=== PATIENT | female | born 1980 | race American Indian/Alaskan Native ===

== ENCOUNTER 2017-11-29 11:03 | Inpatient (IN) | payer MEDICAID ==
[2017-11-29 11:07] VITALS: BMI 43.5
[2017-11-29] MEDS ORDERED: DiphenhydrAMINE 50 mg/ml Inj IVP STA (11:39)
--- NOTE | 2017-11-29 11:49 | ED PDOC ---
HPI: Skin/Bite Injury Time Seen by Provider: 11/29/17 11:15 Chief Complaint (Nursing): Abnormal Skin Integrity Chief Complaint (Provider): Angioedema History Per: Patient Additional Complaint(s): 37 yo female, PMH of HTN, presents to ED for evaluation of severe swelling to lips nad right side of her face since ~ 7 am. Pt can not identify any triggering factors, no few foods, lotions, detergents or medications. pt unsure of her HTN medication; however, director underwriter sales contacted [facility] and found that pt is on Amlodipine. Pt reports she last took her HTN medication last week sometime. No SOB or chest pain/palpitations at anytime. No rash. Pt took 1 tab Benadryl, 25 mg PO, at home BSA/AML COMPLIANCE OFFICER ~ 10 am. Past Medical History Reviewed: Nursing Documentation, Vital Signs Vital Signs: Last Vital Signs Temp 99 F 11/29/17 11:06 Pulse 70 11/29/17 13:10 Resp 21 11/29/17 13:10 BP 130/80 11/29/17 13:10 Pulse Ox 98 11/29/17 13:10 - Medical History PMH: Asthma, Hiatal Hernia, HTN - Surgical History Surgical History: (x4) - Family History Family History: States: Unknown Family Hx - Living Arrangements Living Arrangements: With Family - Social History Current smoker - smoking cessation education provided: No Alcohol: None Drugs: Denies - Home Medications Home Medications: Ambulatory Orders Medication Instructions Recorded Famotidine [Pepcid] 1 tab PO DAILY 11/29/17 Ibuprofen [Motrin Tab] 1 tab PO DAILY 11/29/17 - Allergies Allergies/Adverse Reactions: Allergies Allergy/AdvReac Type Severity Reaction Status Date / Time No Known Allergies Allergy Verified 11/29/17 11:23 Review of Systems ROS Statement: Except As Marked, All Systems Reviewed And Found Negative Skin: Positive for: Other (edema) Physical Exam - Reviewed Nursing Documentation Reviewed: Yes Vital Signs Reviewed: Yes - Physical Exam Appears: Positive for: Well, Non-toxic, No Acute Distress Head Exam: Positive for: ATRAUMATIC, NORMAL INSPECTION, NORMOCEPHALIC Skin: Positive for: Normal Color, Warm, DRY Eye Exam: Positive for: EOMI, Normal appearance, PERRL ENT: Positive for: Other (upper and lower lips, (+) severe edema to right 1/3, ( +) edema to right cheek and extending to chin, no erythema no tendernss to palpation) Neck: Positive for: Normal, Painless ROM Cardiovascular/Chest: Positive for: Regular Rate, Rhythm Respiratory: Positive for: CNT, Normal Breath Sounds Gastrointestinal/Abdominal: Positive for: Normal Exam, Soft Back: Positive for: Normal Inspection Extremity: Positive for: Normal ROM Neurologic/Psych: Positive for: Alert, Oriented - Laboratory Results Result Diagrams: 11/29/17 13:10 11/29/17 13:10 - ECG O2 Sat by Pulse Oximetry: 100 Medical Decision Making Medical Decision Making: Diagnostics ordered. POX: 100% on RA. Pt on monitoring and evaluation advisor. IV access established and treatment initiated with Solumedrol 125mg, Benadryl 25 mg and Pepcid 20 mg On re-eval, vitals remain stable. No improvement noted to facial edema thus far. IM epinephrine administered. ED MD, Dr. Murillo, present at bedside for evaluation as well. Case discussed with wader boot top assembler, Dr. Sanders, who presented to see and evaluate Pt at bedside. Agreed with admission at this time; however, Pt stable and no airway compromise noted thus far. Pt able to be admitted to telemetry for close monitoring. Pt educated on plan and demonstrated full understanding. Pt agreeable to hospital admission. Offers no complaint son re-eval, no chest pain, SOB. POX: 100% on RA. Pt able to tolerate PO without difficulty. Dr. Tamayo, medicine on-call, contacted and case discussed. Arrangements made for tele Disposition - Clinical Impression Clinical Impression: Angioedema - Patient ED Disposition Is Patient to be Admitted: Yes - Disposition Disposition Time: 15:10 Condition: STABLE Forms: [facility] (Maori)
[2017-11-29] MEDS ORDERED: DiphenhydrAMINE 50 mg/ml Inj ONE (11:52)
[2017-11-29] MEDS ORDERED: EPINEPHrine 1 mg/ml (1:1000) Inj IM ONE (12:07)
[2017-11-29 13:33] LABS: ALB/GLOB RATIO 1.3 (1.0-2.1); ALBUMIN 4.3 g/dL (3.5-5.0); ALT/SGPT 46 U/L (9-52); AST/SGOT 43 U/L (14-36); BLOOD UREA NITROGEN 9 mg/dl (7-17); CALCIUM 9.2 mg/dL (8.4-10.2); GFR AFRICAN-AMERICAN > 60; GFR NON-AFRICAN AMERICAN > 60
[2017-11-29 13:40] LABS: BASO # 0.1 K/uL (0.0-0.2); BASO % 0.6 % (0.0-2.0); EOS # 0.1 K/uL (0.0-0.7); EOS % 1.3 % (0.0-4.0); HEMOGLOBIN 10.3 g/dL (12.0-16.0); LYMPH # 2.2 K/uL (1.0-4.3); LYMPH % 26.9 % (20.0-40.0); MEAN CELL VOLUME 81.2 fl (81.0-99.0); MEAN CORPUSCULAR HEMOGLOBIN 26.4 pg (27.0-31.0); MEAN CORPUSCULAR HGB CONC 32.5 g/dL (33.0-37.0); MEAN PLATELET VOLUME 9.9 fl (7.2-11.7); MONO # 0.5 K/uL (0.0-0.8); MONO % 5.9 % (0.0-10.0); NEUT # 5.3 K/uL (1.8-7.0); NEUT % 65.3 % (50.0-75.0); RBC 3.91 Mil/uL (3.80-5.20); RED CELL DISTRIBUTION WIDTH 15.5 % (11.5-14.5); WHITE BLOOD COUNT 8.1 K/uL (4.8-10.8)
[2017-11-29] MEDS ORDERED: Potassium Chloride 20 mEq ER Tab PO ONE ×2 (14:42→14:44)
[2017-11-29] MEDS ORDERED: MethylPREDNISolone 40 mg Vial IVP SCH (16:00)
[2017-11-29] MEDS ORDERED: methylPREDNISolone 40 MG in Sodium Chloride 0.9% 50 ML IVPB SCH (16:00)
[2017-11-30] MEDS: MethylPREDNISolone 40 mg Vial IVP SCH ×3 (01:19→16:23)
[2017-11-30] MEDS: DiphenhydrAMINE 50 mg/ml Inj IVP PRN ×4 (01:27→22:43)
[2017-11-30] MEDS: Enoxaparin 40 mg Syringe SC SCH (09:19)
[2017-11-30 11:51] LABS: HEMOGLOBIN 10.4 g/dL (12.0-16.0); MEAN CORPUSCULAR HEMOGLOBIN 26.4 pg (27.0-31.0); MEAN CORPUSCULAR HGB CONC 32.2 g/dL (33.0-37.0); RBC 3.93 Mil/uL (3.80-5.20); RED CELL DISTRIBUTION WIDTH 15.7 % (11.5-14.5)
[2017-11-30 12:07] LABS: BLOOD UREA NITROGEN 9 mg/dl (7-17); CALCIUM 9.5 mg/dL (8.4-10.2); GFR AFRICAN-AMERICAN > 60; GFR NON-AFRICAN AMERICAN > 60
[2017-11-30 13:15] LABS: % IRON SATURATION 4.7 % (20-55)
[2017-11-30 14:17] LABS: FERRITIN 6.3 ng/Ml (6.24-137.0)
--- NOTE | 2017-11-30 17:48 | CARD ---
APPROVED REPORT Date of service: 11/29/2017 EKG Measurement Heart [id number] <Conclusion> Normal sinus rhythm Normal ECG
[2017-12-01] MEDS: MethylPREDNISolone 40 mg Vial IVP SCH ×3 (00:12→16:44)
[2017-12-01 06:12] LABS: HEMOGLOBIN 9.7 g/dL (12.0-16.0); MEAN CELL VOLUME 81.6 fl (81.0-99.0); MEAN CORPUSCULAR HGB CONC 31.9 g/dL (33.0-37.0); RBC 3.72 Mil/uL (3.80-5.20); RED CELL DISTRIBUTION WIDTH 15.5 % (11.5-14.5); WHITE BLOOD COUNT 20.7 K/uL (4.8-10.8)
[2017-12-01 06:24] LABS: ALB/GLOB RATIO 1.2 (1.0-2.1); ALT/SGPT 30 U/L (9-52); AST/SGOT 28 U/L (14-36); BLOOD UREA NITROGEN 13 mg/dl (7-17); CALCIUM 9.3 mg/dL (8.4-10.2); GFR AFRICAN-AMERICAN > 60; GFR NON-AFRICAN AMERICAN > 60
--- NOTE | 2017-12-01 07:09 | HP ---
CHIEF COMPLAINT: Swelling of face. HISTORY OF PRESENT ILLNESS: This is a 37-year-old female, known case of hypertension, asthma, and obesity who was having severe swelling of her lips and right side of face more than the left since 7 o'clock yesterday, so the patient was brought into the emergency room and was admitted for further management. The patient denies any new or unusual food, and the patient has picture showing worse angioedema than currently the patient has. PAST MEDICAL HISTORY: Significant for hypertension, asthma, and hiatal hernia. PAST SURGICAL HISTORY: Remarkable for section. PERSONAL HISTORY: The patient is currently nonsmoker, nondrinker, no substance abuse. MEDICATIONS: The patient says she is taking amlodipine, famotidine, and ibuprofen. ALLERGIES: THE PATIENT IS NOT ALLERGIC TO ANY MEDICATIONS patient says she is taking capsule for amlodipine and most likely amlodipine is not available in capsule form alone, but it is available in capsule form in combination with FERN inhibitors. So, most likely the patient was taking some FERN inhibitor. The patient will bring the bottles from house, and we will check. FAMILY HISTORY: Noncontributory. REVIEW OF SYSTEMS: Positive for swelling of lips and face. Review of systems otherwise is negative for headache, dizziness, syncope, loss of consciousness, chest pain, shortness of breath, nausea, vomiting, diarrhea, constipation, or any new joint or extremity pain. Review of systems of all other organ system is unremarkable. PHYSICAL EXAMINATION: GENERAL: Well-built, well-nourished, overweight female, in no acute distress. VITAL SIGNS: Temperature 98.1, pulse 73, respirations 20, blood pressure 130/81. HEENT: Pupils reacting to light. No JVD. No thyromegaly. No lymphadenopathy. No nystagmus. The patient has severe angioedema of lips, tongue, and the face, but no respiratory compromise or speech difficulty or swallowing problem. HEART: S1 and S2, normal and regular. LUNGS: Good bilateral air exchange. ABDOMEN: Soft and nontender. No organomegaly. No fluid. Bowel sounds are present and normal. EXTREMITIES: No edema. No calf swelling or tenderness. No acute ischemia. CHARACTER ACTRESS: Essentially unchanged. There is no sign of any acute gross focal, motor, or sensory neurological deficit. DIAGNOSTIC DATA: Available diagnostic data reviewed. WBC 8.1, hemoglobin 10.3, hematocrit 31.8, platelets 292. Sodium 140, potassium 3.3, chloride 104, bicarb 22, BUN 9, creatinine 0.6. SMA-12 is unremarkable except for AST of 43, which is most likely from hepatic steatosis. EKG does not reveal any acute ST-T changes. Telemetry monitoring does not reveal significant arrhythmia. ADMITTING IMPRESSION: Angioedema, most likely from FERN inhibitor, hypertension, arthritis, morbid obesity with BMI of 43. PLAN: As ordered. Case and plan discussed with the patient. Adelso Tamayo MD
[2017-12-01] MEDS: DiphenhydrAMINE 50 mg/ml Inj IVP PRN ×3 (09:14→23:01)
[2017-12-01] MEDS: Enoxaparin 40 mg Syringe SC SCH (09:14)
[2017-12-01 12:54] LABS: FOLATE > 20.0 ng/mL
--- NOTE | 2017-12-01 13:36 | PN ---
DATE: 12/01/2017 SUBJECTIVE: The patient seen and examined. Interim events noted. The patient swollen inside the throat and tongue, and face, but much better than yesterday. No problem with breathing or speaking. No new complaint of chest pain or shortness of breath. PHYSICAL EXAMINATION: GENERA: The patient is in no acute distress. HEENT: Reveals the patient still has weak tongue and facial swelling, but it is much better than yesterday. HEART: Regular. LUNGS: Good bilateral air exchange. ABDOMEN: Soft and nontender. EXTREMITIES: No edema. No calf swelling. No tenderness. No acute ischemia. LAY UP OPERATOR: Exam is essentially unchanged. DIAGNOSTIC DATA: Available diagnostic data reviewed. WBC is 18, most likely . No sign of acute infection. ASSESSMENT AND PLAN: Overall, the patient is clinically stable and improving. Telemetry monitoring does not reveal significant arrhythmias. Plan as ordered. Adelso Tamayo MD
[2017-12-02] MEDS: MethylPREDNISolone 40 mg Vial IVP SCH ×2 (01:25→08:58)
[2017-12-02 05:16] LABS: HEMOGLOBIN 9.5 g/dL (12.0-16.0); MEAN CELL VOLUME 82.1 fl (81.0-99.0); MEAN CORPUSCULAR HEMOGLOBIN 25.7 pg (27.0-31.0); MEAN CORPUSCULAR HGB CONC 31.3 g/dL (33.0-37.0); RBC 3.71 Mil/uL (3.80-5.20); RED CELL DISTRIBUTION WIDTH 15.8 % (11.5-14.5); WHITE BLOOD COUNT 19.9 K/uL (4.8-10.8)
[2017-12-02] MEDS: DiphenhydrAMINE 50 mg/ml Inj IVP PRN ×2 (06:24→14:04)
[2017-12-02 06:50] LABS: ALB/GLOB RATIO 1.1 (1.0-2.1); ALBUMIN 3.7 g/dL (3.5-5.0); ALT/SGPT 29 U/L (9-52); AST/SGOT 25 U/L (14-36); BLOOD UREA NITROGEN 13 mg/dl (7-17); CALCIUM 8.7 mg/dL (8.4-10.2); GFR AFRICAN-AMERICAN > 60; GFR NON-AFRICAN AMERICAN > 60
[2017-12-02] MEDS: Enoxaparin 40 mg Syringe SC SCH (08:58)
--- NOTE | 2017-12-02 14:33 | PN ---
DATE: 12/02/2017 SUBJECTIVE: The patient seen and examined. Interim events noted. The patient remains in progressive care unit. Feels better. Swelling improved. No problem with speech or breathing. PHYSICAL EXAMINATION: GENERAL: The patient is in no acute distress. VITAL SIGNS: Stable. HEENT: is significantly improved but still present and not resolved. HEART: S1 and S2. Normal and regular. LUNGS: Good bilateral air exchange. ABDOMEN: Soft and nontender. EXTREMITIES: No edema. No calf swelling. No tenderness. No acute ischemia. HOUSING SPECIALIST: Exam is essentially unchanged. DIAGNOSTIC DATA: Available diagnostic data reviewed. Telemetry monitoring does not reveal significant arrhythmias. ASSESSMENT AND PLAN: Overall, the patient's general medical condition is stable and improving. The patient's home medication and bottles reviewed. The patient was not on any FERN inhibitor. Plan as ordered. Adelso Tamayo MD
[2017-12-02 15:56] VITALS: BP 137/89; PULSE 82; RESP 20; TEMP 98.4; O2SAT 97
--- NOTE | 2017-12-04 07:16 | PQF ---
PROVIDER RESPONSE TEXT: Anemia REVIEWER QUERY TEXT: Clarification of Clinical Diagnostic Findings Please clarify documentation or clinical relevance for the clinical / diagnostic findings or whether those are insignificant or unable to be further specified. The patient's Clinical Indicators include: Patient presents with severe swelling of her lips and right side of face more than the left since 7 o'clock yesterday, so the patient was brought into the emergency room and was admitted for further management. Diagnosis of Angioedema noted. HGB 10.3-> 9.5 HCT 31.8-> 30.4 MCV , TIBC, Ferritin and Folate: WNL MCH and MCHC , Iron, Sat Iron: Low Query created by: Ghislaine Garza on 12/02/2017 10:50 AM Electronically signed by: Adelso Tamayo 12/04/2017 7:12 AM
== END 2017-12-02 16:39 | disposition home or self-care (01) | DRG 447 ==
LOC: H.ER 11:03 → H.ERHOLD 14:49 → H.TEL 17:45
PROVIDERS: ADMIT Internal Medicine; ATTEND Internal Medicine
DX: T78.3XXA Angioneurotic edema, initial encounter (principal); E66.01 Morbid (severe) obesity due to excess calories; Z68.41 Body mass index [BMI] 40.0-44.9, adult; I10 Essential (primary) hypertension; J45.909 Unspecified asthma, uncomplicated; M19.90 Unspecified osteoarthritis, unspecified site; K44.9 Diaphragmatic hernia without obstruction or gangrene; D64.9 Anemia, unspecified

== ENCOUNTER 2018-01-25 08:33 | Emergency (ER) | payer MEDICAID ==
[2018-01-25 08:33] VITALS: BMI 43.5
[2018-01-25] MEDS ORDERED: Sodium Chloride 0.9% 1,000 ML IV STA (08:44)
[2018-01-25 08:49] VITALS: TEMP 98.2
--- NOTE | 2018-01-25 08:57 | ED PDOC ---
HPI: General Adult Time Seen by Provider: 01/25/18 08:37 Chief Complaint (Nursing): Allergic Reaction Chief Complaint (Provider): Left Facial Swelling History Per: Patient History/Exam Limitations: no limitations Onset/Duration Of Symptoms: Days (x1) Current Symptoms Are (Timing): Still Present Additional Complaint(s): 37 year old female, with a past medical history of hypertension, presenting for evaluation of left sided facial swelling and lips since this morning. Patient states cause is unknown. Patient denies any throat tightness, chest pain, shortness of breath, and rash. Past Medical History Reviewed: Historical Data, Nursing Documentation, Vital Signs Vital Signs: Last Vital Signs Temp 98.2 F 01/25/18 08:49 Pulse 85 01/25/18 13:54 Resp 20 01/25/18 13:54 BP 125/73 01/25/18 13:54 Pulse Ox 97 01/25/18 13:54 - Medical History PMH: Asthma, Hiatal Hernia, HTN Denies: HIV, Chronic Kidney Disease - Surgical History Surgical History: Cholecystectomy, (x4) - Family History Family History: States: Unknown Family Hx - Home Medications Home Medications: Ambulatory Orders Medication Instructions Recorded Cetirizine HCl [Zyrtec] 10 mg PO DAILY #10 capsule 01/25/18 Famotidine [Pepcid] 20 mg PO Q12 #20 tab 01/25/18 Prednisone 50 mg PO DAILY #5 tab 01/25/18 - Allergies Allergies/Adverse Reactions: Allergies Allergy/AdvReac Type Severity Reaction Status Date / Time ibuprofen [From Motrin] Allergy ANAPHYLAXIS Verified 01/25/18 08:45 sulfamethoxazole Allergy URTICARIA Verified 01/25/18 08:40 [From Bactrim] trimethoprim [From Bactrim] Allergy URTICARIA Verified 01/25/18 08:40 Review of Systems ROS Statement: Except As Marked, All Systems Reviewed And Found Negative Constitutional: Negative for: Fever ENT: Positive for: Other (left facial and lip swelling) Cardiovascular: Negative for: Chest Pain Respiratory: Negative for: Shortness of Breath Skin: Negative for: Rash Physical Exam - Reviewed Nursing Documentation Reviewed: Yes Vital Signs Reviewed: Yes - Physical Exam Appears: Positive for: Well, Non-toxic, No Acute Distress Head Exam: Positive for: ATRAUMATIC, NORMAL INSPECTION, NORMOCEPHALIC Skin: Positive for: Normal Color, Warm, Dry. Negative for: Rash Eye Exam: Positive for: EOMI, Normal appearance, PERRL ENT: Positive for: Other (mild swelling to left side of face, left upper lip, and left lower lip; (-) tongue swelling) Neck: Positive for: Normal, Painless ROM Cardiovascular/Chest: Positive for: Regular Rate, Rhythm. Negative for: Murmur Respiratory: Positive for: Normal Breath Sounds. Negative for: Stridor, Wheezing, Respiratory Distress Gastrointestinal/Abdominal: Positive for: Normal Exam, Soft. Negative for: Tenderness Back: Positive for: Normal Inspection. Negative for: L CVA Tenderness, R CVA Tenderness, Vertebral Tenderness Extremity: Positive for: Normal ROM. Negative for: Deformity Neurologic/Psych: Positive for: Alert, Oriented. Negative for: Motor/Sensory Deficits - Laboratory Results Result Diagrams: 01/25/18 10:54 01/25/18 10:54 - ECG O2 Sat by Pulse Oximetry: 97 (RA) Pulse Ox Interpretation: Normal - Progress Re-evaluation Time: 14:02 Condition: Re-examined (Mild swelling left side of face as well as upper and lower lips left side. Hemodynamically stable, respiratory status stable. Discussed with Dr. Tamayo. Will follow in office.) Medical Decision Making Medical Decision Makin Plan: -CMP -CBC -NS 1L IV at 200mL/hour -Solu-Medrol 125mg IVP -Reevaluation Scribe Attestation: Documented by Juan Diego Infante, acting as a scribe for Oswald Mattson MD. Provider Scribe Attestation: All medical record entries made by the Scribe were at my direction and personally dictated by me. I have reviewed the chart and agree that the record accurately reflects my personal performance of the history, physical exam, medical decision making, and the department course for this patient. I have also personally directed, reviewed, and agree with the discharge instructions and disposition. Disposition - Clinical Impression Clinical Impression: Allergic reaction - Patient ED Disposition Is Patient to be Admitted: No Counseled Patient/Family Regarding: Studies Performed, Diagnosis, Need For Followup, Rx Given - Disposition Referrals: Adelso Tamayo MD [Staff Provider] - Disposition: Routine/Home Disposition Time: 14:04 Condition: FAIR Prescriptions: Cetirizine HCl [Zyrtec] 10 mg PO DAILY #10 capsule Famotidine [Pepcid] 20 mg PO Q12 #20 tab Prednisone 50 mg PO DAILY #5 tab Instructions: Angioedema Forms: [employer] (German)
[2018-01-25 09:43] LABS: BASO % 0.1 % (0.0-2.0); EOS # 0.2 K/uL (0.0-0.7); EOS % 5.5 % (0.0-4.0); LYMPH # 0.9 K/uL (1.0-4.3); LYMPH % 22.7 % (20.0-40.0); MEAN CELL VOLUME 82.5 fl (81.0-99.0); MEAN CORPUSCULAR HEMOGLOBIN 26.8 pg (27.0-31.0); MEAN CORPUSCULAR HGB CONC 32.5 g/dL (33.0-37.0); MONO # 0.3 K/uL (0.0-0.8); MONO % 7.3 % (0.0-10.0); NEUT # 2.5 K/uL (1.8-7.0); NEUT % 64.4 % (50.0-75.0); NRBC % 0.2 % (0.0-0.0); RBC 1.74 Mil/uL (3.80-5.20); RED CELL DISTRIBUTION WIDTH 18.3 % (11.5-14.5); WHITE BLOOD COUNT 3.9 K/uL (4.8-10.8)
[2018-01-25 09:54] LABS: HEMOGLOBIN 4.7 g/dL (12.0-16.0)
[2018-01-25 11:20] LABS: BASO % 0.2 % (0.0-2.0); EOS # 0.3 K/uL (0.0-0.7); EOS % 4.1 % (0.0-4.0); HEMOGLOBIN 9.1 g/dL (12.0-16.0); LYMPH # 0.8 K/uL (1.0-4.3); MEAN CELL VOLUME 80.2 fl (81.0-99.0); MEAN CORPUSCULAR HEMOGLOBIN 26.6 pg (27.0-31.0); MEAN CORPUSCULAR HGB CONC 33.2 g/dL (33.0-37.0); MEAN PLATELET VOLUME 8.6 fl (7.2-11.7); MONO # 0.2 K/uL (0.0-0.8); MONO % 2.7 % (0.0-10.0); NEUT # 6.3 K/uL (1.8-7.0); NRBC % 0.1 % (0.0-0.0); RBC 3.42 Mil/uL (3.80-5.20); RED CELL DISTRIBUTION WIDTH 18.7 % (11.5-14.5); WHITE BLOOD COUNT 7.6 K/uL (4.8-10.8)
[2018-01-25 11:36] LABS: ALB/GLOB RATIO 1.1 (1.0-2.1); ALBUMIN 3.6 g/dL (3.5-5.0); ALT/SGPT 41 U/L (9-52); AST/SGOT 30 U/L (14-36); BLOOD UREA NITROGEN 8 mg/dl (7-17); CALCIUM 8.7 mg/dL (8.4-10.2); GFR NON-AFRICAN AMERICAN > 60
[2018-01-25 14:18] VITALS: BP 128/76; PULSE 86; RESP 18; O2SAT 99
== END 2018-01-25 14:17 | disposition home or self-care (01) ==
LOC: H.ER 08:33
DX: T78.40XA Allergy, unspecified, initial encounter (principal); Z88.6 Allergy status to analgesic agent; I10 Essential (primary) hypertension; J45.909 Unspecified asthma, uncomplicated
CPT/HCPCS: 80053; 81025; 85025; 96361; 96374; 99285; J2930; J7030

== ENCOUNTER 2018-02-23 17:27 | Emergency (ER) | payer MEDICAID ==
[2018-02-23 17:27] VITALS: BMI 43.5
--- NOTE | 2018-02-23 18:07 | ED PDOC ---
HPI: Chest Pain Time Seen by Provider: 02/23/18 18:00 Chief Complaint (Nursing): Chest Pain History Per: Patient Onset/Duration Of Symptoms: Days (1) Current Symptoms Are (Timing): Intermittent Episodes Severity: Mild Quality: Aching Associated Symptoms: denies: Nausea, Dyspnea, Diaphoresis Modifying Factors: None Additional Complaint(s): Left sided chest pain intermittent since this AM. Radiates to left arm. Not assoc with SOB. Denies cough or fever. Denies palpitations. No change in pain on inspiration. Past Medical History - Medical History PMH: Asthma, Hiatal Hernia, HTN Denies: HIV, Chronic Kidney Disease - Surgical History Surgical History: Cholecystectomy, (x4) - Family History Family History: States: Unknown Family Hx - Home Medications Home Medications: Ambulatory Orders Medication Instructions Recorded Cetirizine HCl [Zyrtec] 10 mg PO DAILY #10 capsule 01/25/18 Famotidine [Pepcid] 20 mg PO Q12 #20 tab 01/25/18 Prednisone 50 mg PO DAILY #5 tab 01/25/18 - Allergies Allergies/Adverse Reactions: Allergies Allergy/AdvReac Type Severity Reaction Status Date / Time ibuprofen [From Motrin] Allergy ANAPHYLAXIS Verified 02/23/18 17:31 sulfamethoxazole Allergy URTICARIA Verified 02/23/18 17:31 [From Bactrim] trimethoprim [From Bactrim] Allergy URTICARIA Verified 02/23/18 17:31 Review of Systems ROS Statement: Except As Marked, All Systems Reviewed And Found Negative Cardiovascular: Positive for: Chest Pain Physical Exam - Reviewed Nursing Documentation Reviewed: Yes Vital Signs Reviewed: Yes - Physical Exam Appears: Positive for: Non-toxic, No Acute Distress Head Exam: Positive for: ATRAUMATIC, NORMAL INSPECTION, NORMOCEPHALIC Skin: Positive for: Normal Color, Warm, DRY Eye Exam: Positive for: EOMI, Normal appearance, PERRL ENT: Positive for: Normal ENT Inspection Neck: Positive for: Normal, Painless ROM Cardiovascular/Chest: Positive for: Regular Rate, Rhythm. Negative for: Chest Non Tender (Left sided ant chest wall tenderness, reproducible.) Respiratory: Positive for: CNT, Normal Breath Sounds Gastrointestinal/Abdominal: Positive for: Normal Exam, Soft Back: Positive for: Normal Inspection Extremity: Positive for: Normal ROM. Negative for: Calf Tenderness, Swelling Neurologic/Psych: Positive for: Alert, Oriented Disposition - Clinical Impression Clinical Impression: Chest pain - Patient ED Disposition Is Patient to be Admitted: Transfer of Care - Disposition Disposition: Transfer of Care Disposition Time: 18:58 Condition: FAIR Forms: [employer] [facility] (Maltese) Patient Signed Over To: Cecilia Schwab
[2018-02-23 18:57] LABS: BASO # 0.1 K/uL (0.0-0.2); BASO % 1.1 % (0.0-2.0); EOS # 0.4 K/uL (0.0-0.7); EOS % 6.9 % (0.0-4.0); HEMOGLOBIN 10.8 g/dL (12.0-16.0); LYMPH # 1.8 K/uL (1.0-4.3); MEAN CELL VOLUME 84.2 fl (81.0-99.0); MEAN CORPUSCULAR HEMOGLOBIN 27.8 pg (27.0-31.0); MEAN CORPUSCULAR HGB CONC 33.1 g/dL (33.0-37.0); MEAN PLATELET VOLUME 9.1 fl (7.2-11.7); MONO # 0.6 K/uL (0.0-0.8); NRBC % 0.1 % (0.0-0.0); RBC 3.87 Mil/uL (3.80-5.20); RED CELL DISTRIBUTION WIDTH 20.3 % (11.5-14.5); WHITE BLOOD COUNT 5.8 K/uL (4.8-10.8)
[2018-02-23 19:25] LABS: ALB/GLOB RATIO 1.1 (1.0-2.1); ALT/SGPT 32 U/L (9-52); AST/SGOT 36 U/L (14-36); BLOOD UREA NITROGEN 9 mg/dl (7-17); CALCIUM 9.3 mg/dL (8.4-10.2); GFR NON-AFRICAN AMERICAN > 60
--- NOTE | 2018-02-23 21:42 | ED PDOC ---
- Laboratory Results Result Diagrams: 02/23/18 18:53 02/23/18 18:53 - ECG O2 Sat by Pulse Oximetry: 100 (RA) Pulse Ox Interpretation: Normal Medical Decision Making Medical Decision Making: Time: 1899 Patient singed out to me by Dr. Mattson pending x-ray and reevaluation. Patient's labs present no abnormalities and x-ray presents no infiltrate. Reviewed case with Dr. Tamayo and he agrees to repeat troponin and if negative can dc. Patient's second troponin was negative and patient has no chest pain. pt will follow-up with Dr. Tamayo Upon provider reevaluation patient is feeling better, is medically stable, and requires no further treatment in the ED at this time. Patient will be discharged home. Counseling was provided and all questions were answered regarding diagnosis and need for follow up with PMD. There is agreement to discharge plan. Return if symptoms persist or worsen. Scribe Attestation: Documented by Tamar Rubio, acting as a scribe for Cecilia Schwab MD. Provider Scribe Attestation: All medical record entries made by the Scribe were at my direction and personally dictated by me. I have reviewed the chart and agree that the record accurately reflects my personal performance of the history, physical exam, medical decision making, and the department course for this patient. I have also personally directed, reviewed, and agree with the discharge instructions and disposition. Disposition - Clinical Impression Clinical Impression: Chest pain, Atypical chest pain - POA Present On Arrival: None - Disposition Disposition: Routine/Home Disposition Time: 00:00 Condition: IMPROVED Additional Instructions: follow up with Dr Tamayo in 1-2 days return to the ED with any worsening or concerning symptoms Instructions: Chest Pain (DC) Forms: [employer] (Singaporean)
--- NOTE | 2018-02-24 09:08 | RAD ---
Date of service: 02/23/2018 HISTORY: Chest pain COMPARISON: No prior. TECHNIQUE: Chest PA and lateral FINDINGS: LUNGS: No active pulmonary disease. PLEURA: No significant pleural effusion identified. No pneumothorax apparent. CARDIOVASCULAR: No aortic atherosclerotic calcification present OSSEOUS STRUCTURES: No significant abnormalities. 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 Other findings as above.
[2018-02-24 10:40] VITALS: BP 128/83; PULSE 79; RESP 16; TEMP 98.3
[2018-02-25 09:48] VITALS: O2SAT 100
== END 2018-02-24 00:18 | disposition home or self-care (01) ==
LOC: H.ER 17:27
DX: R07.89 Other chest pain (principal)